=== PATIENT | female | born 1980 | race Caucasian/White ===

== ENCOUNTER 2022-02-19 06:55 | Day surgery (SDC) | payer OTHER ==
[~2022-02-19] VITALS: Ht 167.6 cm; Wt 79.5 kg
[~2022-02-19 06:55] MED LIST: ZESTRIL10 MG PO
--- NOTE | 2022-02-19 10:30 | NUR ---
02/19/22 1030 Sheets,Debbie 1022 PT ARRIVED TO PACU ON 6L VIA MASK, JAW THRUST USED OFF AND ON TO MAINTAIN AIRWAY WITH ORAL AIRWAY IN PLACE. PT NONAROUSABLE.
[2022-02-19] MEDS ORDERED: IBUPROFEN600 MG PO (10:41)
[2022-02-19] MEDS ORDERED: HYDROCODON-ACE1 EA10 PO (10:42)
[2022-02-19] MEDS ORDERED: ACETAMINOPHEN500 MG PO (10:42)
--- NOTE | 2022-02-19 13:02 | NUR ---
PT ALERT, ORIENTED AND SUPPORTED BY HER ARNEL. PT SEEMS INFORMED, ARNEL WILL REMAIN FOR DC. ALL QUESTIONS ASKED ANSWERED. DENISE GONZALEZ RN PETER IN TO CONTINUE CARE. WILL FOLLOW
--- NOTE | 2022-02-19 13:26 | NUR ---
STEADY ON FEET WITH ONE PERSON ASSIST FOR AMBULATION TO BR. DENIES NAUSEA. REPORTS4/10 ABD PAIN. DENIES NAUSEA AT THIS POINT. GETTING DRESED WITH HELP OF . PROVIDED COPY OF DISCHARGE INSTRUCTIONS WITH RX.
--- NOTE | 2022-02-19 15:13 | OR ---
[facility] [address] [place], [place] [address] Signed DATE OF OPERATION: 02/19/2022 SURGEON: Cuong Monteiro MD PREOPERATIVE DIAGNOSIS: Chronic acalculous cholecystitis (CCK HIDA, ejection fraction 15% with reproduction of symptoms. POSTOPERATIVE DIAGNOSIS: Chronic acalculous cholecystitis (CCK HIDA, ejection fraction 15% with reproduction of symptoms. PROCEDURES: 1. Laparoscopic cholecystectomy with intraoperative cholangiogram. 2. Surgeon-directed fluoroscopy. ANESTHESIA: General endotracheal, Clark Seamans, LAUNDERER HAND and local 10 mL of 0.25% Marcaine with epinephrine. INDICATIONS: This 41-year-old white woman is a patient of Uma Beckett PA-C. She has been having symptoms highly typical of biliary disease including right subcostal and right subscapular pain, predictably following meals. A gallbladder ultrasound was performed, which showed no sign of stones. A subsequent CCK HIDA test was performed, which showed an ejection fraction of only 15% with reproduction of her symptoms. She is admitted at this time to undergo cholecystectomy, preferred by laparoscopic approach. The risks of bleeding, infection, bile duct injury, need for other indicated procedures and need for open procedure were reviewed in detail. Additionally noted are the hazards of lack of improvement related to cholecystectomy, though I think she will be markedly improved. Understand, although she wished to proceed. FINDINGS: There were omental adhesions at the umbilicus, but additionally in the subhepatic space on the right side. The gallbladder itself was chronically inflamed. Once excised, it did show chronic inflammatory change of the mucosa, but no sign of neoplasm or stone. The cholangiogram was entirely normal. The liver had mild fatty infiltration. There were no other findings of concern. DESCRIPTION OF PROCEDURE: Electronically Signed By: CUONG MONTEIRO MD 02/19/22 1513 PATIENT NAME: STEPHANIE ALLEN OPERATIVE REPORT DATE OF : 80 REPORT #: [id number] PHYSICIAN: CUONG MONTEIRO MD PCP: UMA BECKETT PA-C REPORT IS CONFIDENTIAL AND NOT TO BE RELEASED WITHOUT AUTHORIZATION [facility] [address] [place], [place] [address] Signed The patient was brought to the operating room, given a general endotracheal anesthetic. Preoperative antibiotic Ancef was given. Sequential compression device stockings used and heparin subcutaneously administered. The abdomen was prepared with chlorhexidine solution and draped sterilely. An infraumbilical incision was made and using an open Dorothy cannula technique, the abdomen was entered. Pneumoperitoneum was achieved to a level of 14 mmHg of carbon dioxide gas. Notably, there were omental adhesions in the area. With various manipulations, the angled 30-degree laparoscope was passed into the cannula to allow for visualization of the intra-abdominal space. There is no sign of ascites or carcinomatosis. The gallbladder is completely obscured from view at that point due to dense omental adhesions to the undersurface of the liver. Three additional trocars were placed in usual configuration in the subxiphoid, right midclavicular, and right anterior axillary line. Using blunt electrocautery dissection, omental adhesions were taken down revealing the underlying gallbladder. The gallbladder was elevated cephalad and retracted laterally. Using blunt electrocautery dissection, the triangle of Calot was dissected free, ultimately identifying the cystic duct. Cystic arterial branch disease was additionally identified and doubly clipped and divided. The clip applied across gallbladder cystic duct junction. Maintaining critical view of safety. A transverse choledochotomy was made in the cystic duct. Egress of clear bile was noted. Using the Adams type cholangiocatheter intraoperative cholangiography was undertaken, showing free flow of contrast in the biliary tree with prompt emptying into the duodenum using surgeon directed fluoroscopy. There was no sign of abnormality. The catheter was removed and the cystic duct was triply clipped and divided. The gallbladder dissected free in a retrograde fashion using electrocautery. Minimal rent in the gallbladder was noted with egress of clear bile, which was easily managed. The gallbladder was placed in an Endobag and extracted through the infraumbilical port site without problem, opening done on the back table showing chronic inflammatory change. No evidence of polyps or malignancy. Irrigation was undertaken of the subhepatic space. There was no sign of bile leak, bleeding, or other problems. Photographs were taken. There was mild fatty infiltration of the liver, but not enough to warrant biopsy per se. The trocar was removed under direct visualization showing no sign of bleeding. Omental adhesions in the umbilicus were without signs of problem either. The infraumbilical fascial incision was reapproximated with interrupted 0 Vicryl suture. A 10 mL of 0.25% Marcaine with epinephrine injected locally into the trocar sites. Irrigation was undertaken. The skin closed with interrupted 3-0 Vicryl. Steri-Strips were applied. The patient was ultimately extubated and transferred to the recovery room in good condition and suffered no complications. Sponge, needle, and instrument counts reported as correct x3. Electronically Signed By: CUONG MONTEIRO MD 02/19/22 1513 PATIENT NAME: STEPHANIE ALLEN OPERATIVE REPORT DATE OF : 80 REPORT #: [id number] PHYSICIAN: CUONG MONTEIRO MD PCP: UMA BECKETT PA-C REPORT IS CONFIDENTIAL AND NOT TO BE RELEASED WITHOUT AUTHORIZATION [address] [place], [place] [address] Signed MD SHENA Bray/ELI /[id number] cc: Uma Beckett PA-C Copies: ~ Electronically Signed By: CUONG MONTEIRO MD 02/19/22 1513 PATIENT NAME: STEPHANIE ALLEN OPERATIVE REPORT DATE OF : 80 REPORT #: [id number] PHYSICIAN: CUONG MONTEIRO MD PCP: UMA BECKETT PA-C REPORT IS CONFIDENTIAL AND NOT TO BE RELEASED WITHOUT AUTHORIZATION
--- NOTE | 2022-02-23 17:19 | PATH ---
[facility] [address] [place], [place] [address] Signed SPECIMEN(S): A GALLBLADDER SPECIMEN SOURCE: A. GALLBLADDER CLINICAL HISTORY: Chronic cholecystitis. FINAL PATHOLOGIC DIAGNOSIS: Gallbladder, cholecystectomy: - Benign gallbladder with mild chronic inflammation, focally consistent with chronic cholecystitis. - Negative for calculi. - Focal mucosal cholesterolosis. JVR:guera:C2NR MICROSCOPIC EXAMINATION: Histologic sections of all submitted blocks are examined by light microscopy. These findings, together with the gross examination, support the pathologic diagnosis. GROSS DESCRIPTION: The specimen, labeled and designated "tatianna Guzman," is received in formalin and consists of Specimen: Previously opened gallbladder. Dimensions: 6.5 x 4.2 cm. Serosa: Smooth. Cystic Duct: Unobstructed. Calculi: Are not identified within the gallbladder or within the container. Mucosa: Lolo-heard and velvety. Wall thickness: 0.3 cm. Lymph node: No pericystic lymph nodes are grossly identified. Additional: None. Molder Labels sections are submitted in (A1). JS (under the direct supervision of a pathologist) The Gross Description was prepared using a voice recognition system. The report was reviewed for accuracy; however, sound-alike word errors, addition and/or deletions may occur. If there is any question about this report, please contact Client Services. PERFORMING LABORATORY: PATIENT NAME: STEPHANIE GUZMAN PATHOLOGY DATE OF : 80 REPORT #: [id number] PHYSICIAN: KEREN NAVARRETE PCP: UMA SQUIRES PA-C REPORT IS CONFIDENTIAL AND NOT TO BE RELEASED WITHOUT AUTHORIZATION [facility] [address] [place], [place] [address] Signed The technical component was performed by [facility], [address] [place] [id number] (CLIA# [id number]). Professional interpretation was performed by [facility] - [address] [address] (CLIA#: [id number]). Diagnostician: Ricardo Olea MD Pathologist Electronically Signed 02/23/2022 Copies: ~ PATIENT NAME: STEPHANIE GUZMAN PATHOLOGY DATE OF : 80 REPORT #: [id number] PHYSICIAN: KEREN NAVARRETE PCP: UMA SQUIRES PA-C REPORT IS CONFIDENTIAL AND NOT TO BE RELEASED WITHOUT AUTHORIZATION
== END 2022-02-19 13:35 | disposition home or self-care (01) ==
LOC: DS 06:55
PROVIDERS: ATTEND Surgery
PROC: BF121ZZ Fluoroscopy of Gallbladder using Low Osmolar Contrast (ICD-10-PCS; 2022-02-19)
PROC: 0FT44ZZ Resection of Gallbladder, Percutaneous Endoscopic Approach (ICD-10-PCS; principal; 2022-02-19 08:30)
DX: K81.1 Chronic cholecystitis (principal); Z83.79 Family history of other diseases of the digestive system; Z98.890 Other specified postprocedural states; E66.3 Overweight; Z68.28 Body mass index [BMI] 28.0-28.9, adult; Z88.0 Allergy status to penicillin; I10 Essential (primary) hypertension
CPT/HCPCS: 00790; 74300; J0330; J0690; J1100; J1170; J1644; J1885; J2001; J2250; J2405; J2704; J3010; J7121; Q9967